=== PATIENT | male | born 1970 | race Caucasian/White ===

== ENCOUNTER → 2017-11-02 15:52 | Outpatient (CLI) | payer OTHER, SELFPAY ==
[2017-11-02 18:18] LABS: CRP < 2.90 mg/L (0.0-3.0)
[2017-11-04 16:11] LABS: Endomysial Antibody IgA Negative (Negative)
[2017-11-07 12:50] LABS: Immunoglobulin A 240 mg/dL (90-386); t-Transglutaminase IgA <2 U/mL (0-3)
== END ==
PROVIDERS: Family Provider Family Medicine; PCP Family Medicine; Visit Provider Internal Medicine Gastroenterology
DX: R19.7 Diarrhea, unspecified (principal)
CPT/HCPCS: 36415; 82784; 83516; 86140; 86255

== ENCOUNTER 2018-06-30 05:36 | Day surgery (SDC) | payer OTHER, SELFPAY ==
[2018-06-08 08:12] VITALS: BMI 24.3
[2018-06-30] VITALS (9 sets, daily range): BP systolic 103–139; BP diastolic 78–96; PULSE 73–81; RESP 16–18; TEMP 36.4–37.2; O2SAT 95–100; BMI 25.6
--- NOTE | 2018-06-30 06:30 | COLBX_PTH ---
PATIENT: ROBERTO CARLOS YIP LOC: EN U#:[id number] AGE/SX: 48/M ROOM: RE06/30/[address]: Dr. Maksim Cortez MD : 1970 BED: DIS: 06/30/2018 SPEC #: [id number] RECD: 06/30/18 08:34 STATUS: JOHANA YEFRI #: [id number] ZAIDA: 06/30/18 06:[address]: Maksim Cortez DEPT: SURGICAL PATHOLOGY RECD BY: Mehul Mcdermott ENTERED: 06/30/18 13:21 SP TYPE: COLON BX OTHR DR: Dr. Chino Cortez III, MD Tissues: Rectum, NOS Procedures: Surgery Specimen Level IV HEADER OPERATION: Colonoscopy (MOD) PRE-OP DIAGNOSIS: Screening TISSUE SUBMITTED: Biopsy rectum MICROSCOPIC DIAGNOSIS Rectum, biopsy: A fragment of colonic mucosa, no pathologic diagnosis. SJ:charlie 07/03/18 MICROSCOPIC DESCRIPTION Slides are reviewed. GROSS DESCRIPTION Received in fixative is one container labeled with the patient's name and designated biopsy rectum. The specimen consists of one irregular fragment of light han soft tissue that measures 0.3 x 0.2 x 0.1 cm. The specimen is totally submitted in one cassette. / SJ:charlie 06/30/18 TC:4 CPT: 76965
--- NOTE | 2018-06-30 06:57 | OP.ENDO_ITS ---
Patient Name: Manav Mckeon Procedure Date: 06/30/2018 6:06 AM Date of : 1970 Age: 48 Procedure: Colonoscopy Indications: Screening for colorectal malignant neoplasm Providers: Maksim Cortez MD Referring MD: Maksim Cortez MD Medicines: Midazolam 4 mg IV, Meperidine 100 mg IV Patient Profile: Last Colonoscopy: none. The patient's first colonoscopy is today. Complications: No immediate complications. Procedure: Pre-Anesthesia Assessment: - Prior to the procedure, a History and Physical was performed, and patient medications and allergies were reviewed. The patient's tolerance of previous anesthesia was also reviewed. The risks and benefits of the procedure and the sedation options and risks were discussed with the patient. All questions were answered, and informed consent was obtained. Prior Anticoagulants: The patient has taken no previous anticoagulant or antiplatelet agents. ASA Grade Assessment: I - A normal, healthy patient. After reviewing the risks and benefits, the patient was deemed in satisfactory condition to undergo the procedure. After I obtained informed consent, the scope was passed under direct vision. Throughout the procedure, the patient's blood pressure, pulse, and oxygen saturations were monitored continuously. The colonoscope was introduced through the anus and advanced to the cecum, identified by appendiceal orifice and ileocecal valve. The colonoscopy was performed without difficulty. The patient tolerated the procedure well. The quality of the bowel preparation was good. The ileocecal valve and the appendiceal orifice were photographed. Moderate Sedation: Moderate (conscious) sedation was personally administered by the endoscopist. The following parameters were monitored: oxygen saturation, heart rate, blood pressure, and response to care. Total physician intraservice time was 15 minutes. Scope In: 6:32:49 AM Scope Withdrawal Time 0 hours 7 minutes 46 seconds Scope Out: 6:47:15 AM Total Procedure Duration Time 0 hours 14 minutes 26 seconds Findings: The perianal and digital rectal examinations were normal. Hemorrhoids were found on perianal exam. Scattered diverticula were found in the sigmoid colon. The exam was otherwise without abnormality. The rectum appeared normal. Biopsies were taken with a cold forceps for histology. Impression: - Hemorrhoids found on perianal exam. Minimal. No bleeding - Diverticulosis in the sigmoid colon. - The examination was otherwise normal. - The rectum is normal. Biopsied. Recommendation: - Discharge patient to home. - Resume previous diet. - Continue present medications. - Repeat colonoscopy in 10 years for screening purposes. - Telephone my office for pathology results in 1 week. Procedure Code(s): --- Professional --- 10840, Colonoscopy, flexible; with biopsy, single or multiple 56152, 59, Moderate sedation services provided by the same physician or other qualified health respiratory care assistant performing the diagnostic or therapeutic service that the sedation supports, requiring the presence of an independent trained observer to assist in the monitoring of the patient's level of consciousness and physiological status; initial 15 minutes of intraservice time, patient age 5 years or older Diagnosis Code(s): --- Professional --- Z12.11, Encounter for screening for malignant neoplasm of colon K64.9, Unspecified hemorrhoids K57.30, Diverticulosis of large intestine without perforation or abscess without bleeding CPT copyright 2017 [employer]. All rights reserved. The codes documented in this report are preliminary and upon medical coder review may be revised to meet current compliance requirements. Maksim Cortez MD 06/30/2018 6:57:09 AM This report has been signed electronically. Number of Addenda: 0 Note Initiated On: 06/30/2018 6:06 AM
== END 2018-06-30 07:46 | disposition home or self-care (01) ==
LOC: EN 05:36 → AC 05:37
PROVIDERS: Family Provider Family Medicine; PCP Family Medicine; Referring Provider Family Medicine; Visit Provider Surgery
PROC: 0DJD8ZZ Inspection of Lower Intestinal Tract, Via Natural or Artificial Opening Endoscopic (ICD-10-PCS; CPT 45378; principal; 2018-06-30 06:25)
DX: Z12.11 Encounter for screening for malignant neoplasm of colon (principal); K57.30 Diverticulosis of large intestine without perforation or abscess without bleeding; K64.9 Unspecified hemorrhoids; Z90.49 Acquired absence of other specified parts of digestive tract
CPT/HCPCS: 45380; 88305; 99152; 99153; J7120

== ENCOUNTER → 2020-02-07 11:06 | Outpatient (CLI) | payer OTHER, SELFPAY ==
[2018-06-30 06:03] VITALS: BMI 25.6
--- NOTE | 2020-02-07 11:12 | VDLE_ITS ---
Reason For Study: pain RIGHT GSV is normal. CFV is compressible, spontaneous, phasic, competent and demonstrates normal augmentation. FV is compressible, spontaneous, phasic, competent and demonstrates normal augmentation. POP V is compressible, spontaneous, phasic, competent and demonstrates normal augmentation. T/P Trunk is compressible. PTV is compressible. RT PerV is compressible. Hypoechoic area behind the knee measuring 2.87 x 1.43 cm. Area is too large to measure in long. Area is nonvascular. Procedure Exam performed in department. The exam was abbreviated due to the COVID 19 protocol. The exam was diagnostic. A preliminary report was called and/or faxed to [facility]. Interpretation Summary Deep veins of the right lower extremity are patent and compressible segmentally. There is no evidence of right lower extremity deep vein thrombosis. Valvular competence appears intact within the proximal deep venous system on the right . The right great saphenous vein appears patent and compressible segmentally. A non-vascular, hypoechoic structure is noted in the right popliteal space, with dimensions as documented above. This probably represents a popliteal cyst. Clinical correlation is advised. Ordering Physician: Lavon Lama Performed By: Shad Nguyen RVT
== END ==
PROVIDERS: PCP Family Medicine; Referring Provider Physician Assistant; Visit Provider Physician Assistant
DX: M79.661 Pain in right lower leg (principal)
CPT/HCPCS: 93971

== ENCOUNTER 2023-07-13 08:57 | Day surgery (SDC) | payer OTHER, SELFPAY ==
[2023-07-13] VITALS (7 sets, daily range): BP systolic 103–130; BP diastolic 70–93; PULSE 72–83; RESP 16; TEMP 36.3–36.7; O2SAT 92–99; BMI 23.8
--- NOTE | 2023-07-13 09:21 | PCM.HP.STD ---
[facility] - General General Date of Admission: 07/13/23 Date of Service: 07/13/23 Chief Complaint: Screening colonoscopy HPI Narrative ROBERTO CARLOS YIP, is a 53 M who presents for a screening colonoscopy. He has a past medical history of partial thyroidectomy with a history of cholecystitis status postcholecystectomy. He comes in today for screening colonoscopy. Last colonoscopy back in 2018. He has a strong family history of colon cancer in his brother was diagnosed at the age of 48. [facility] Medical History (Updated 07/06/23 @ 12:49 by Cecy Ramsey) Family hx of colon cancer Non-smoker Rectal spasm Screening for intestinal cancer Thyroid disease Wears contact lenses Wears glasses Home Medications multivitamin (Daily Multi-Vitamin tablet) 1 tab PO DAILY 07/06/23 [History Last Taken Unknown] Allergy/AdvReac Type Severity Reaction Status Date / Time No Known Allergies Allergy Verified 07/06/23 12:42 Family History (Updated 06/15/23 @ 11:47 by Nata Katz) Mother Hypertension Brother Colon cancer, Onset Age: 48 Survives, colectomy Surgical History History of broken leg Hx of cholecystectomy Hx of colonoscopy Hx of partial thyroidectomy Social History Smoking Status: Never smoker second hand exposure: No alcohol intake: never substance use type: does not use caffeine: Yes what type of physical activity do you participate in: walking, running and weight training frequency: 3-4 times per week seatbelt use: always ROS Review of Systems ROS Unobtainable: other Constitutional Constitutional: Denies fatigue, fever(s), poor appetite, weight gain or weight loss ENT HEENT: Denies mouth lesions Cardiovascular Cardiovascular: Denies abdominal bloating, abdominal edema or abdominal pain Respiratory/Chest Respiratory/Chest: Denies change in mental status, change in phlegm color, chest congestion or chest tightness Gastrointestinal Gastrointestinal: Denies belching, bloating, change in bowel habits, change in stool character, chewing difficulty, coffee ground emesis, constipation, cramping, diarrhea, dyspepsia, dysphagia, early satiety, excessive flatus, fecal incontinence, heartburn, hematemesis, hematochezia, hemorrhoids, loose stools, melena, nausea, odynophagia, rectal bleeding, tenesmus, vomiting or weight changes Genitourinary Genitourinary: Denies abdominal discomfort, burning urination or itching Musculoskeletal Musculoskeletal: Reports as per HPI; Denies muscle weakness or myalgias Integumentary Integumentary: Denies jaundice Neurologic Neurologic: Denies lack of coordination or weakness Psychiatric Psychiatric: Denies confusion, depression, memory loss, mood swings, paranoia or suicidal ideation Endocrine Endocrinology: Denies systems reviewed and no addt'l complaints, except as documented Hematologic/Lymphatic Hematologic/Lymphatic: Denies anemia, easy bleeding, easy bruising or lymphadenopathy Allergic/Immunologic Allergic/Immunologic: Denies systems reviewed and no addt'l complaints, except as documented Physical Exam Const alert General Appearance: cooperative Orientation / Consciousness: oriented to person HEENT hearing grossly normal bilaterally Head and Scalp: normal to inspection Face and Sinus: face symmetric Nose: external nose normal Mouth: oral and palatal mucosa normal Eyes conjunctivae normal General Eye: normal appearance of both eyes Neck full ROM General: normal visual inspection Lymph Lymphatic: no lymphadenopathy noted Chest inspection of chest normal and palpation of chest normal Chest: symmetrical chest wall rise Resp normal respiratory effort Effort and Inspection: able to speak in complete sentences Cardio regular rate GI non-distended Percussion: normal to percussion Rectal Exam: deferred Neuro Speech: speech normal Gait (Neuro): normal gait Assessment & Plan Assessment/Plan (1) Encounter for screening for malignant neoplasm of colon: PLAN: He was explained alternatives, risk, benefits including not withstanding bleeding, infection, sepsis, perforation, need for emergent surgery and . He will have an ASA of 2.
[2023-07-13] MEDS: Lactated Ringers 1,000 ML 15 ML IV (09:42)
--- NOTE | 2023-07-13 10:00 | COLBX_PTH ---
PATHOLOGY RESULTS PATIENT: ROBERTO CARLOS YIP LOC: EN U#:[id number] AGE/SX: 53/M ROOM: RE07/13/[address]: Dr. Uri Rodríguez DO : 1970 BED: DIS: 07/13/2023 SPEC #: [id number] RECD: 07/13/23 12:20 STATUS: JOHANA YEFRI #: [id number] ZAIDA: 07/13/23 10:[address]: Uri Rodríguez DEPT: SURGICAL PATHOLOGY RECD BY: Meg Layne ENTERED: 07/13/23 12:21 SP TYPE: COLON BX OTHR DR: Dr. Leonel Heaton MD Tissues: COLON BIOPSY Anal region Procedures: Surgery Specimen Level IV HEADER OPERATION: Colonoscopy - open access with biopsies PRE-OP DIAGNOSIS: Screening TISSUE SUBMITTED: A - Hepatic flexure polyp biopsy, B - Anorectal juncture biopsy MICROSCOPIC DIAGNOSIS A. Hepatic flexure polyp, biopsy: Tubular adenoma. B. Anorectal junction, biopsy: No significant pathologic change. AM:charlie 07/14/2023 MICROSCOPIC DESCRIPTION Slides are reviewed. GROSS DESCRIPTION A - Received in fixative is one container labeled with the patient's name and designated hepatic flexure polyp biopsy. The specimen consists of one irregular fragment of light han soft tissue that measures 0.3 x 0.3 x 0.1 cm. The specimen is totally submitted in one cassette. B - Received in fixative is one container labeled with the patient's name and designated anorectal juncture biopsy. The specimen consists of two irregular fragments of light han soft tissue that in aggregate measure 0.6 x 0.3 x 0.1 cm. The specimen is totally submitted in one cassette. / SJ:charlie 07/13/2023 TC:5 CPT: 96217 x2
--- OUTSIDE RECORDS SUMMARY | 2023-07-13 10:01 | XMS RPT_ITS | CCD ---
Author Name Unknown Address [address] [place] [address] Organization [facility] Care Team Providers Care [employer] Pumper Name Role Phone James White MD Primary Care Provider [phone] JAMES WHITE Attending Unavailable JAMES WHITE Primary Care Unavailable JAMES WHITE Referring Unavailable JAMES WHITE Primary Care Unavailable JAMES WHITE Primary Care Unavailable JAMES WHITE Referring Unavailable JAMES WHITE Attending Unavailable JAMES WHITE Primary Care Unavailable JAMES WHITE Primary Care Unavailable JAMES WHITE Referring Unavailable James White MD Primary Care Provider [phone] Medications Completed/Discontinued Medications Medication Drug Class(es) Dates Sig (Normalized) Sig (Original) meloxicam 15 mg oral tablet (6 sources) Nonsteroidal Anti-inflammatory Drug take 1 tablet by mouth once daily as needed meloxicam (MOBIC) 15 mg tablet Take 15 mg by mouth once daily. As needed 0 Active Problems Active Problems Problem Classification Problem Date Documented Da te Episodic/Chronic Complications of surgical procedures or medical care (7 sources) History of subtotal thyroidectomy; Translations: [Postprocedural hypothyroidism] Onset: 04-14-2017 Chronic Osteoarthritis (6 sources) Arthritis of right knee; Translations: [Unilateral primary osteoarthritis, right knee] Onset: 04-24-2021 04-24-2021 Chronic Other aftercare (20 sources) Patient encounter status; Translations: [Other intermission coordinator (current) drug therapy] Onset: 05-18-2022 05-18-2022 Episodic Other non-traumatic joint disorders (1 source) Pain in left knee; Translations: [Acute pain of left knee] Onset: 05-10-2023 Episodic Other nutritional; endocrine; and metabolic disorders (4 sources) Gilbert's syndrome; Translations: [Gilbert syndrome] Onset: 05-10-2023 05-10-2023 Chronic Other screening for suspected conditions (not mental disorders or infectious disease) (4 sources) Encounter for screening for diabetes mellitus; Translations: [Encounter for screening for lipoid disorders] Onset: 05-18-2022 Episodic Residual codes; unclassified (4 sources) At risk of disease; Translations: [Other specified personal risk factors, not elsewhere classified] Onset: 05-10-2023 Episodic Residual codes; unclassified (3 sources) Active living will ; Translations: [Other specified health status] Onset: 05-10-2023 05-10-2023 Episodic Residual codes; unclassified (2 sources) Family history of cancer of colon; Translations: [Family history of malignant neoplasm of digestive organs] Onset: 05-16-2023 05-16-2023 Episodic Thyroid disorders (7 sources) Nodular goiter ; Translations: [Nontoxic goiter, unspecified] Onset: 01-15-2015 Chronic Thyroid disorders (1 source) Disorder of thyroid gland; Translations: [Disorder of thyroid, unspecified] Episodic Past or Other Problems Problem Classification Problem Date Documented Da te Episodic/Chronic Anal and rectal conditions (4 sources) Anal sphincter spasm; Translations: [Anal spasm] Onset: 05-18-2022 05-18-2022 Episodic Other aftercare (1 source) Other intermission coordinator (current) drug therapy; Translations: [Medication management] Onset: 05-18-2022 Episodic Other infections; including parasitic (7 sources) Personal history of other infectious and parasitic diseases; Translations: [History of COVID-19] Onset: 04-24-2021 Episodic Other liver diseases (6 sources) Increased bilirubin level; Translations: [Unspecified jaundice] Onset: 02-03-2019 02-03-2019 Episodic Other liver diseases (1 source) Unspecified jaundice; Translations: [Elevated bilirubin] Onset: 02-03-2019 Episodic Results Test Name Value Interpretation Reference Range Facil ity Vital Signs Date Time Vital Sign Value Performing Clinician Ofelia ibarra 03-04-2022 08:24-0400 Body height 183 cm John Hernandez MD Work Phone: [facility] 03-04-2022 08:24-0400 Body weight 84.87 kg John Hernandez MD Work Phone: [facility] 03-04-2022 08:24-0400 Diastolic blood pressure 81 mm[Hg] John Hernandez MD Work Phone: [facility] 03-04-2022 08:24-0400 Heart rate 65 /min John Hernandez MD Work Phone: [facility] 03-04-2022 08:24-0400 Systolic blood pressure 121 mm[Hg] John Hernandez MD Work Phone: [facility] Encounters Encounter Date Encounter Type Care Provider Facility Start: 05-16-2023 Telephone encounter Susy Talley MA Family [facility] Procedures Date Procedure Procedure Detail Performing Clinician Start: 05-10-2023 Lipid 1996 panel - S ashlee or Plasma James White MD Work Phone: Start: 05-11-2022 Hemoglobin A1c/Hemoglobin.total in Blood [facility] Provider Start: 03-04-2022 End: 03-04-2022 soft tissue head & neck real time imge docm John Hernandez MD Work Phone: Start: 06-30-2018 Colonoscopy John edward MD Work Phone: Plan of Treatment Date Care Activity Detail Author Start: 06-30-2028 Colonoscopy COLONOSCOPY [facility] Start: 06-30-2028 COLORECTAL CANCER SCREENING COLORECTAL CANCER SCREENING [facility] Start: 05-10-2028 Lipid 1996 panel - S ashlee or Plasma Lipid Screening [facility] Start: 05-18-2027 LIPID SCREEN LIPID SCREEN [facility] Start: 05-10-2026 Diabetes Screening Diabetes Screenin g [facility] Start: 04-24-2026 LIPID SCREEN LIPID SCREEN [facility] Start: 05-18-2025 DIABETES SCREEN DIABETES SCREEN [facility] Start: 04-24-2024 DIABETES SCREEN DIABETES SCREEN [facility] Start: 03-05-2024 Urine microalbumin profile [facility] Start: 07-10-2023 Depression Assessment Depression Ass essment [facility] Immunizations Immunization Date Immunization Notes Care Provider Merlin peterson 03-05-2014 tetanus toxoid, redu temitope diphtheria toxoid, and acellular pertussis vaccine, adsorbed John Hernandez MD Work Phone: [facility] Payers Date Payer Category Payer Private Health Insurance DAVID YOU [id number] 2021-Present [phone] [address] [place] [address] PPO [id number] 2021 Private Health Insurance [id number] Social History Date Type Detail Facility Start: 03-04-2022 Tobacco smoking stat us DCIS Never smoked tobacco [facility] Work Phone: Start: 03-04-2022 Tobacco use and exposure Smoke less tobacco non-user [facility] Work Phone: Start: 03-04-2022 End: 05-16-2023 Alcohol intake Current non-drinker of alcohol (finding) [facility] Start: 05-09-2020 History SDOH Alcohol Frequency 1 [facility] Start: 1970 Sex Assigned At Not on file [facility] Start: 02-22-2022 End: 03-04-2022 Exposure to SARS-CoV-2 (event) Not sure [facility] Start: 05-18-2022 End: 05-09-2023 History of Social function [facility] Start: 05-18-2022 End: 05-09-2023 [facility] Utilities [facility] Has the [employer] threatened to shut off services in your home in past 12Mo No [facility] Do you belong to any clubs or organizations such as scientologist groups, unions, fraternal or athletic groups, or school groups? Yes [facility] Are you now , , , , never or living with a partner? [facility] How often to you hav e a drink containing alcohol? Never [facility] How many standard dr inks containing alcohol do you have on a typical day? Patient does not drink [facility] Do you feel stress - tense, restless, nervous, or anxious, or unable to sleep at night because your mind is troubled all the time - these days [OSQ] Only a little [facility] (I/We) worried wheth er (my/our) food would run out before (I/we) got money to buy more. Never true [facility] Clinical Notes 04-14-2017 to 05-16-2023 Telephone Encounter - Susy Talley MA - 05/16/2023 4:24 PM ESTTelephone Encounter - James White MD - 05/16/2023 12:35 PM ESTTelephone Encounter - Susy Talley MA - 05/16/2023 11:52 AM EST Note Date & Type Note Facility 05-16-2023 Miscellaneous Notes Faxed. Susy Talley MA Order ready to be faxed. Received fax from Dr. Cortez's office and patient is due for colonoscopy in July 02. Please place consult. Patient notified. Susy Talley MA documented in this encounter [facility] 05-13-2023 Miscellaneous Notes Patient calls and notified of results and providers instructions. Patient verbalizes understanding. OV notes form 05/10/2023 mentions ok to proceed with PT if x-ray ok. Patient not wanting to pursue at this time. Patient will notify provider if changes mind. Carline Mojica RN Please let patient know their xray is normal. documented in this encounter [facility] 05-11-2023 Miscellaneous Notes Patient notified and voiced understanding. Susy Talley MA Let patient know he does has gilberts syndrome which is the benign liver disease we discussed. His prostate lab, lipid panel, blood sugar screen and electrolyte panel were all ok. documented in this encounter [facility] 05-10-2023 Note HNO ID: [id number] Author: Erica Vines RT(R) Service: Radiology Author Type: Technologist Type: Progress Notes Filed: 05/10/2023 9:15 AM Note Text: Radiology Service Progress Note PATIENT NAME: Manav Mckeon DATE OF SERVICE: May 10, 2023 TIME: 9:00 AM PATIENT IDENTITY VERIFICATION COMPLETED USING TWO (2) IDENTIFIERS: Name and Date of confirmed by patient verbally. FALL SCREENING: Has the patient had 2 falls in the last year or 1 fall with injury or currently using an Ambulatory Assistive Device (Walker, Cane, Wheelchair, Crutches, etc.)? No PATIENT GENDER DATA: Male PATIENT RELEVANT IMPLANT DATA REVIEWED: Not Applicable RADIOLOGY DEPARTMENT: General X-ray: Exam(s) Completed: Lower Extremity X-Ray(s): Knee, AP / Lat / Tunne / Merchant Bilateral and Wt. Bearing PERIPHERAL IV DATA: Not applicable SIGNED BY: RT Ricardo(R) May 10, 2023 9:00 AM [facility] 05-10-2023 Note HNO ID: [id number] Author: James White MD Service: ? Author Type: Physician Type: Progress Notes Filed: 05/10/2023 9:29 PM Note Text: Chief Complaint Patient presents with: Physical HPI Manav Mckeon is a 52 year old male who presents here today for Physical. Patient with hx of thyroid goiter s/p partial removal and follows with Endo. Has Arthritis of the right knee and sees ortho as well as those reviewed and addressed below and in ROS. Any concerns today? None Patients see Endocrinology - last visit 02/2022. Patient has an appointment in May His brother who is 48 was just diagnoses with colon cancer. Past medical history, appointments, medications, allergies reviewed. Previous Medical History PAST MEDICAL HISTORY Diagnosis Date Arthritis of right knee 04/24/2021 Seeing Sheri Gallagher Cholelithiasis 10/2008 Elevated bilirubin Goiter, nodular 01/15/2015 H/O partial thyroidectomy 04/14/2017 History of COVID-19 04/24/202102/2021 Left thyroid nodule 05/09/2015 benign Rectal spasm 04/14/2017 Rectal sphincter spasm 05/18/2022 Skin cancer screening 05/18/[address] Stevenson Well adult exam 04/24/2021 Last done: 04/24/2021 Previous Surgical History PAST SURGICAL HISTORY Procedure Laterality Date BIOPSY LIVER NEEDLE PERCUTANEOUS 02/04/2009 COLONOSCOPY 06/30/2018 FNA WITH IMAGING Left 02/01/2015 U/S FNA left thyroid nodule LAPS SURG CHOLECYSTECTOMY W/CHOLANGIOGRAPHY 02/04/2009 PAST SURGICAL HISTORY OF hardware in rt ankle TOTAL THYROID LOBECTOMY UNI W/WO ISTHMUSECTOMY Left 05/09/2015 no cancer Family History FAMILY HISTORY Problem Relation Age of Onset Hypertension Mother Hyperlipidemia Father other (Protatitis) Father Hypertension Brother Diabetes Maternal Grandmother Alzheimer's Disease Maternal Uncle Colon Cancer No Family History Prostate Cancer No Family History Breast Cancer No Family History Ovarian cancer No Family History Coronary Artery Disease No Family History Kidney Disease No Family History Seizures No Family History Stroke No Family History Thyroid No Family History Patient Allergies ALLERGIES No Known Allergies Current Medications Current Outpatient Medications on File Prior to Visit Medication Sig meloxicam (MOBIC) 15 mg tablet Take 15 mg by mouth once daily. As needed vitamin B complex (B-COMPLEX ORAL) Take by mouth once daily. [facility]NC, biotin 50 mcg per pill OTC NUTRITIONAL SUPPLEMENT once daily. [facility]PC EXtra No current facility-administered medications on file prior to visit. Social History Social History Tobacco Use Smoking status: Never Smokeless tobacco: Never Vaping Use Vaping Use: Never used Substance Use Topics Alcohol use: No Drug use: No Review of Symptoms REVIEW OF SYSTEMS GENERAL: No weight loss, malaise or fevers HEENT: Negative for frequent or significant headaches, No changes in hearing or vision, no nose bleeds or other nasal problems NECK: Negative for lumps, goiter, pain and significant neck swelling RESPIRATORY: Negative for cough, hemoptysis, wheezing, COPD, dyspnea or shortness of breath CARDIOVASCULAR: Negative for chest pain, leg swelling, hypertension, CHF or palpitations GI: No nausea, vomiting, or diarrhea, No heartburn or reflux symptoms, and no blood : No history of dysuria, frequency or blood. MUSCULOSKELETAL: typically has a Hx with right knee pain but recently with flexion of the left knee he is getting pain in the medial compartment for the past several months. No grinding, locking or giving out. SKIN: Negative for lesions, rash, and itching PSYCH: Negative for sleep disturbance, mood disorder and recent psychosocial stressors HEMATOLOGY/LYMPHOLOGY: Negative for prolonged bleeding, bruising easily or swollen nodes ENDOCRINE: Negative for cold or heat intolerance, polyuria, polydipsia and goiter NEURO: No history of headaches, syncope, paralysis, seizures or tremors EXAM: BP 118/82 (BP Site: Left Arm, BP Position: Sitting, BP Cuff Size: Regular Adult) Pulse 78 Resp 16 Ht 184.8 cm (6' 0.75 ) Wt 81.2 kg (179 lb) BMI 23.78 kg/m? General Appearance: Well appearing, alert, in no acute distress, well-hydrated, well nourished.. Skin: Skin color, texture, turgor normal, no suspicious rashes or lesions. Head: Normocephalic, no masses, lesions, tenderness or abnormalities. Eyes: Anicteric sclera. Pupils are equally round and reactive to light. Extraocular movements are intact. . Ears: External ears, TM's normal, canals clear. Nose/Sinuses: Nares normal, septum midline, mucosa normal, no drainage or sinus tenderness. Oropharynx: Lips, mucosa, and tongue normal, teeth and gums normal, oropharynx normal. Neck: Supple, no adenopathy; thyroid symmetric, normal size, no bruits. Lungs: Lungs clear to auscultation. No wheezing, rhonchi, rales.. Heart: RRR without murmur, gallop, or rubs. No ectopy. Abdomen: N (more content not included)... [facility] 05-21-2022 Miscellaneous Notes Patient notified and voiced understanding. Faxed work health form. Susy Talley MA Patient also indicated that they completed an A1C at work and results were 5.0. Updated chart. Susy Talley MA ' Let patient know his prostate lab, lipid panel, kidney functions, liver functions, blood sugar and electrolytes were all ok. Work health form ready to be faxed. documented in this encounter [facility] 05-18-2022 Note HNO ID: [id number] Author: James White MD Service: ? Author Type: Physician Type: Progress Notes Filed: 05/18/2022 10:31 AM Note Text: Chief Complaint Patient presents with: Physical HPI Manav Mckeon is a 51 year old male who presents here today for Above Complaints. and Chronic Medical Conditions.. Patient with hx of thyroid goiter s/p partial removal and follows with Endo. Has Arthritis of the right knee and sees ortho as well as those reviewed and addressed below and in ROS. Patient has been doing ok. No new issues or concerns. Using the Mobic a few days a month for knee pain. Past medical history, appointments, medications, allergies reviewed. Previous Medical History PAST MEDICAL HISTORY Diagnosis Date Arthritis of right knee 04/24/2021 Seeing Sheri Gallagher Cholelithiasis 10/2008 Elevated bilirubin Goiter, nodular 01/15/2015 H/O partial thyroidectomy 04/14/2017 History of COVID-19 04/24/202102/2021 Left thyroid nodule 05/09/2015 benign Rectal spasm 04/14/2017 Well adult exam 04/24/2021 Last done: 04/24/2021 Previous Surgical History PAST SURGICAL HISTORY Procedure Laterality Date BIOPSY LIVER NEEDLE PERCUTANEOUS 02/04/2009 COLONOSCOPY 06/30/2018 FNA WITH IMAGING Left 02/01/2015 U/S FNA left thyroid nodule LAPS SURG CHOLECYSTECTOMY W/CHOLANGIOGRAPHY 02/04/2009 PAST SURGICAL HISTORY OF hardware in rt ankle TOTAL THYROID LOBECTOMY UNI W/WO ISTHMUSECTOMY Left 05/09/2015 no cancer Family History FAMILY HISTORY Problem Relation Age of Onset Hypertension Mother Hyperlipidemia Father other (Protatitis) Father Hypertension Brother Diabetes Maternal Grandmother Alzheimer's Disease Maternal Uncle Colon Cancer No Family History Prostate Cancer No Family History Breast Cancer No Family History Ovarian cancer No Family History Coronary Artery Disease No Family History Kidney Disease No Family History Seizures No Family History Stroke No Family History Thyroid No Family History Patient Allergies ALLERGIES No Known Allergies Current Medications Current Outpatient Medications on File Prior to Visit Medication Sig meloxicam (MOBIC) 15 mg tablet Take 15 mg by mouth once daily. As needed vitamin B complex (B-COMPLEX ORAL) Take by mouth once daily. [facility], biotin 50 mcg per pill OTC NUTRITIONAL SUPPLEMENT once daily. [facility]PC EXtra No current facility-administered medications on file prior to visit. Social History Social History Tobacco Use Smoking status: Never Smokeless tobacco: Never Vaping Use Vaping Use: Never used Substance Use Topics Alcohol use: No Drug use: No Review of Symptoms REVIEW OF SYSTEMS GENERAL: No weight loss, malaise or fevers HEENT: Negative for frequent or significant headaches, No changes in hearing or vision, no nose bleeds or other nasal problems NECK: Negative for lumps, goiter, pain and significant neck swelling RESPIRATORY: Negative for cough, hemoptysis, wheezing, COPD, dyspnea or shortness of breath CARDIOVASCULAR: Negative for chest pain, leg swelling, hypertension, CHF or palpitations GI: No nausea, vomiting, or diarrhea, No heartburn or reflux symptoms, and no blood : No history of dysuria, blood MUSCULOSKELETAL: Negative for new or chnges in his typical joint pain or swelling, back pain or muscle pain SKIN: Negative for lesions, rash, and itching PSYCH: Negative for sleep disturbance, mood disorder and recent psychosocial stressors HEMATOLOGY/LYMPHOLOGY: Negative for prolonged bleeding, bruising easily or swollen nodes ENDOCRINE: Negative for cold or heat intolerance, polyuria, polydipsia and goiter NEURO: No history of headaches, syncope, paralysis, seizures or tremors EXAM: BP 122/82 Pulse 80 Resp 16 Ht 187 cm (6' 1.62 ) Wt 84.8 kg (187 lb) SpO2 99% BMI 24.26 kg/m? Last 4 Encounter Wt Readings: Date: Wt: 05/18/2022 84.8 kg (187 lb) 03/04/2022 84.9 kg (187 lb 1.6 oz) 04/24/2021 81.6 kg (180 lb) 03/04/2021 82.9 kg (182 lb 11.2 oz) General Appearance: Well appearing, alert, in no acute distress, well-hydrated, well nourished.. Skin: seeing derm Head: Normocephalic, no masses, lesions, tenderness or abnormalities. Eyes: Anicteric sclera. Pupils are equally round and reactive to light. Extraocular movements are intact. . Ears: External ears normal, canals clear. Neck: Supple, no adenopathy; thyroid symmetric, normal size, no bruits. Lungs: Lungs clear to auscultation. No wheezing, rhonchi, rales.. Heart: RRR without murmur, gallop, or rubs. No ectopy. Abdomen: Normal abdominal exam, Abdomen soft, non-tender. Bowel sounds normal. No masses, organomegaly. Extremities: No deformities, edema, skin discoloration,. Good capillary refill. . Peripheral Pulses: Normal. Neurologic: Gait normal. Reflexes normal and symmetric. Sensation to light touch and crainal nerves 2-12 intact.. Genitalia: Normal, Penis normal. No urethr (more content not included)... [facility] 03-04-2022 Note HNO ID: [id number] Author: John Hernandez MD Service: ? Author Type: Physician Type: Progress Notes Filed: 03/04/2022 5:12 PM Note Text: . [facility] - [place] [address] [place], [place] [id number] [place] [address] Endocrinology - [address], [address] [place], [place] [address] Patient's name: Manav Mckeon Patient's date of : 1970 Date of encounter: 03/04/2022 History of present illness: Manav Mckeon is a 51 year old male who presents for follow up of an endocrinology issue. Previous history: 01/14/2015: TSH 1.230 (0.400-5.500 uU/mL), total T4 5.4 (5.0-11.0 ug/dL), total T3 94 (94-170 ng/dL), 01/15/2015: Ultrasound of thyroid gland, at outside hospital: Left lobe dominant predominately solid echogenic nodule, 30 x 21 x 21 mm with a smooth circumscribed margin. There is a small cystic area in the posterior aspect of this nodule. No other definitive thyroid nodule is seen. However, there is a 5 x 5 x 4 mm hypoechoic solid nodule that appears to be adjacent to the posterior inferior aspect of the right lobe representing either an exophytic thyroid nodule or a parathyroid gland. 02/01/2015: ultrasound guided fine needle aspiration biopsy, of left thyroid lesion, at [facility]. Cytology: follicular lesion of undetermined significance. 02/2015: Initial consultation with [facility]. 02/2015: Ultrasound: Gland homogeonus. Right lobe without lesions. Isthmus without lesions. Left mass 29.6 x 22.6 x 22.1 mm (length, width, depth) Iso-echoic solid-appearing lesion with hypoechoic rim, ok borders, no calcifications, no abnormal intra-nodular vascular patterns. Some peripheral vascularity. No suspicious nodes in neck (right and left) levels VII, , IV, III, IIa, IIb. 02/2015: I then did an ultrasound guided fine needle aspiration biopsy of the left lesion.Cytology ([facility]): Indeterminate by cytopathology. 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 Microscopic description: The cytologic preparations are moderately cellular, and show an increased number of follicular cells in the crowded micofollicular groups. Some of the follicular cells are enlarged and show nuclei with pale chromatin. Some colloid and occasional macrofollicles are also seen. Diagnostic comments: These features are best described as atypia of undetermined significance (AUS). The nuclear atypia combined with the increased number of microfollicles and crowded groups of follicular cells support the diagnosis of AUS. The previous diagnosis is noted. 03/2015: Molecular testing; ([facility]ir[facility]); [facility]irma GEC Result: Suspicious. [facility]irma MTC Result: Negative. [facility] BRAF Result: Negative (A gene expression signature for the BRAF V600E mutation was not identified. A negative Afirma BRAF result does not significantly change the risk of malignancy (ROM) of the Afirma GEC Suspicious result.) 04/01/2015: Initial consultation with surgeon, Dr. Reg Silver. 05/09/2015: Surgery: Left thyroid lobectomy. [facility]. Dr. Reg Silver. The findings revealed a 3-cm left-sided thyroid mass, which on frozen section did not show any malignancy. The right side was not dissected out. 05/09/2015: Surgical pathology: Left thyroid lobectomy. 2.5 cm benign adenomatoid nodule. 08/2015: TSH 3.450 (0.358-3.740 uIU/mL), free T4 0.83 (0.76-1.46 ng/dL), free T3 2.7 (2.2-4.0 pg/ml), asymptomatic. Plan was to monitor his thyroid hormone levels over time. 04/2016: TSH 3.090 (0.400 - 5.500 uU/mL), at outside lab. 08/2016: TSH 2.290 (0.358-3.740 uIU/mL), free T4 0.88 (0.76-1.46 ng/dL), free T3 2.5 (2.2-4.0 pg/mL), Thyroid Peroxidase Antibodies <28.0 (0.0-60.0 IU/mL), Thyroglobulin Antibodies <15.0 (0.0-60.0 IU/mL), 08/2016: Neck Ultrasound (intra-office): Thyroid: Right thyroid lobe intact, 50.1 x 19.0 x 18.9 mm (length x width x depth), Isthmus 2.9 mm (depth). Left lobe surgically absent. Thyroid architecture homogenous. No nodules or cysts. No suspicious nodes in neck levels (bilateral) , VII, IV, III, IIa, IIb. 09/2016: Thyroglobulin 9.2 (<0.1 ng/mL), Thyroglobulin Antibodies <1 (<=1 IU/mL), Note: The thyroglobulin was evaluated by the Mer [place] Chemiluminescent method, [facility]. Note, I didn't order this test. Lab ran wrong test. 06/2017: TSH 2.930 (0.358-3.740 uIU/mL), free T4 0.84 (0.76-1.46 ng/dL), free T3 2.8 (2.2-4.0 pg/mL), on no thyroid meds. 06/2017: Neck Ultrasound (intra-office): Right thyroid lobe intact, 53.0 x 18.6 x 18.0 mm (length, width, depth) smooth and homogenous. Isthmus and left lobe surgically absent. No suspicious nodes in neck levels (bilateral) , VII, IV, III, IIa, IIb. 05/2018: TSH 2.850 (0.358-3.740 uIU/mL), free T4 0.81 (0.76-1.46 ng/dL), on no thyroid meds. 05/2018: Neck Ultrasound ( (more content not included)... [facility] 03-04-2022 Instructions John Hernandez MD - 03/04/2022 8:26 AM EDT Goiter and nodular goiter: We will do long-term monitoring of your enlarged thyroid gland (goiter). Contact me if any new and persistent anterior neck issues, like: Choking sensation / feeling of pressure on the front of the neck. Trouble swallowing / feeling like food getting 'caught' on the way down. New hoarseness of the voice, that is not going away after a few weeks. Chronic need to clear throat , or coughing all day long. documented in this encounter [facility] 03-04-2022 History of Presen t illness Narrative Images from the original note were not included. . [facility] [address] [place] [address], [address] Endocrinology - [address], [address] [place] [address] Patient's name: Manav Mckeon Patient's date of : 1970 Date of encounter: 03/04/2022 History of present illness: Manav Mckeon is a 51 year old male who presents for follow up of an endocrinology issue. Previous history: 01/14/2015: TSH 1.230 (0.400-5.500 uU/mL), total T4 5.4 (5.0-11.0 ug/dL), total T3 94 (94-170 ng/dL), 01/15/2015: Ultrasound of thyroid gland, at outside hospital: Left lobe dominant predominately solid echogenic nodule, 30 x 21 x 21 mm with a smooth circumscribed margin. There is a small cystic area in the posterior aspect of this nodule. No other definitive thyroid nodule is seen. However, there is a 5 x 5 x 4 mm hypoechoic solid nodule that appears to be adjacent to the posterior inferior aspect of the right lobe representing either an exophytic thyroid nodule or a parathyroid gland. 02/01/2015: ultrasound guided fine needle aspiration biopsy, of left thyroid lesion, at [facility] facility. Cytology: follicular lesion of undetermined significance. 02/2015: Initial consultation with nh. 02/2015: Ultrasound: Gland homogeonus. Right lobe without lesions. Isthmus without lesions. Left mass 29.6 x 22.6 x 22.1 mm (length, width, depth) Iso-echoic solid-appearing lesion with hypoechoic rim, ok borders, no calcifications, no abnormal intra-nodular vascular patterns. Some peripheral vascularity. No suspicious nodes in neck (right and left) levels VII, , IV, III, IIa, IIb. 02/2015: I then did an ultrasound guided fine needle aspiration biopsy of the left lesion.Cytology ([facility]): Indeterminate by cytopathology. 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 Microscopic description: The cytologic preparations are moderately cellular, and show an increased number of follicular cells in the crowded micofollicular groups. Some of the follicular cells are enlarged and show nuclei with pale chromatin. Some colloid and occasional macrofollicles are also seen. Diagnostic comments: These features are best described as atypia of undetermined significance (AUS). The nuclear atypia combined with the increased number of microfollicles and crowded groups of follicular cells support the diagnosis of AUS. The previous diagnosis is noted. 03/2015: Molecular testing; ([facility] Afirma); Afirma GEC Result: Suspicious. Afirma MTC Result: Negative. Afirma BRAF Result: Negative (A gene expression signature for the BRAF [id number] mutation was not identified. A negative Afirma BRAF result does not significantly change the risk of malignancy (ROM) of the Afirma GEC Suspicious result.) 04/01/2015: Initial consultation with surgeon, Dr. Reg Silevr. 05/09/2015: Surgery: Left thyroid lobectomy. [facility]. Dr. Reg Silver. The findings revealed a 3-cm left-sided thyroid mass, which on frozen section did not show any malignancy. The right side was not dissected out. 05/09/2015: Surgical pathology: Left thyroid lobectomy. 2.5 cm benign adenomatoid nodule. 08/2015: TSH 3.450 (0.358-3.740 uIU/mL), free T4 0.83 (0.76-1.46 ng/dL), free T3 2.7 (2.2-4.0 pg/ml), asymptomatic. Plan was to monitor his thyroid hormone levels over time. 04/2016: TSH 3.090 (0.400 - 5.500 uU/mL), at outside lab. 08/2016: TSH 2.290 (0.358-3.740 uIU/mL), free T4 0.88 (0.76-1.46 ng/dL), free T3 2.5 (2.2-4.0 pg/mL), Thyroid Peroxidase Antibodies <28.0 (0.0-60.0 IU/mL), Thyroglobulin Antibodies <15.0 (0.0-60.0 IU/mL), 08/2016: Neck Ultrasound (intra-office): Thyroid: Right thyroid lobe intact, 50.1 x 19.0 x 18.9 mm (length x width x depth), Isthmus 2.9 mm (depth). Left lobe surgically absent. Thyroid architecture homogenous. No nodules or cysts. No suspicious nodes in neck levels (bilateral) , VII, IV, III, IIa, IIb. 09/2016: Thyroglobulin 9.2 (<0.1 ng/mL), Thyroglobulin Antibodies <1 (<=1 IU/mL), Note: The thyroglobulin was evaluated by the Mer [place] Chemiluminescent method, [facility]. Note, I didn't order this test. Lab ran wrong test. 06/2017: TSH 2.930 (0.358-3.740 uIU/mL), free T4 0.84 (0.76-1.46 ng/dL), free T3 2.8 (2.2-4.0 pg/mL), on no thyroid meds. 06/2017: Neck Ultrasound (intra-office): Right thyroid lobe intact, 53.0 x 18.6 x 18.0 mm (length, width, depth) smooth and homogenous. Isthmus and left lobe surgically absent. No suspicious nodes in neck levels (bilateral) , VII, IV, III, IIa, IIb. 05/2018: TSH 2.850 (0.358-3.740 uIU/mL), free T4 0.81 (0.76-1.46 ng/dL), on no thyroid meds. 05/2018: Neck Ultrasound (intra-office): The (remaining) thyroid gland architecture is smooth and homogenous. Right lobe 53.6 x 19.7 x 16.4 mm (length x width x depth), Left lobe surgically absent. Isthmus (right portion) 3.3 mm depth. No suspicious nodes in neck levels (bilateral) , VII, IV, III, IIa, IIb. 01/2019: TSH 3.050 (0.400 - 5.500 uU/mL), free T4 1.2 (0.9 - 1.7 ng/dL). 05/2019: Neck Ultrasound (intra-office): The thyroid gland architecture is smooth and mostly homogenous. Right lobe 52.9 x 18.8 x 18.6 mm (length x width x depth), Left lobe and Isthmus surgically absent. No suspicious nodes in neck levels (bilateral) , VII, IV, III, IIa, IIb. 04/2020: TSH 2.510 (0.270-4.200 uIU/mL), free T4 1.1 (0.9-1.7 ng/dL), free T3 3.0 (2.3-4.1 pg/mL), 04/2020: Neck Ultrasound (performed during the endocrine clinic visit): The thyroid gland architecture is smooth and mostly homogenous. Right lobe intact 51.4 x 19.2 x 12.5 mm (length x width x depth), Left lobe and Isthmus surgically absent. No nodules or cysts in right lobe. No tissue in left thyroid bed. No suspicious nodes in neck levels (bilateral) , VII, IV, III, IIa, IIb. 02/2021: TSH 0.660 (0.270-4.200 uU/mL), free T4 1.1 (0.9-1.7 ng/dL), on no thyroid meds. 02/2021: Neck Ultrasound (performed during the endocrine clinic visit): The thyroid gland architecture is mildly heterogeneous. Right lobe 49.2 x 19.5 x 14.0 mm (length x width x depth), Left lobe and Isthmus surgically absent. No nodules or cysts in Right lobe. No tissue in left thyroid bed. No prominent nodes. No suspicious nodes in neck levels (bilateral) , VII, IV, III, IIa, IIb. Interval history: The patient now returns for re-evaluation and follow-up. The above history was re-confirmed. When asked how he feels overall, he responded fine Not on thyroid meds. Still with right lobe of thyroid. Anterior neck compression symptoms: No overt or daily dysphagia of solids, liquids or pills. No overt globus sensation in neck. No new or existing hoarseness. No anterior neck compression / feeling of external pressure. Denies clearing of throat. Denies cough. Biotin use (vitamin B-7) : Use of jkii-bkb-ehyvtej, high dose, biotin supplement: None. Use of Hvdo-Lbcy-Eqdo vitamins, or similar formulation with high-dose biotin: None. Use of B-complex vitamin preparations with high-dose biotin: Yes, on a B-complex. ([facility]) biotin 50 mcg per pill. Last dose was ~36 hours ago. Use of jjkj-zvz-zdjxagt leave-in hair conditioners that contain biotin: None. Allergies, medications, medical and surgical history, family history and social history, and problem list reviewed. Preferred pharmacy for the medications I prescribe (or may prescribe) is: [facility]/pharmacy #[id number] [place] [address] - [phone] [facility]. - [phone] [facility] [phone] Review of Systems Review of Systems Constitutional: Negative for malaise/fatigue. Respiratory: Negative for shortness of breath and wheezing. Cardiovascular: Negative for chest pain and palpitations. Gastrointestinal: Negative for abdominal pain, nausea and vomiting. Musculoskeletal: Negative for back pain and joint pain. Neurological: Negative for tremors. Endo/Heme/Allergies: See the history of present illness section Past Medical, Surgical, Family and Social History PAST MEDICAL HISTORY Diagnosis Date Arthritis of right knee 04/24/2021 Seeing [facility] Cholelithiasis 10/2008 Elevated bilirubin Goiter, nodular 01/15/2015 H/O partial thyroidectomy 04/14/2017 History of COVID-19 04/24/202102/2021 Left thyroid nodule 05/09/2015 benign Rectal spasm 04/14/2017 Well adult exam 04/24/2021 Last done: 04/24/2021 PAST SURGICAL HISTORY Procedure Laterality Date BIOPSY LIVER NEEDLE PERCUTANEOUS 02/04/2009 COLONOSCOPY 06/30/2018 FNA WITH IMAGING Left 02/01/2015 U/S FNA left thyroid nodule LAPS SURG CHOLECYSTECTOMY W/CHOLANGIOGRAPHY 02/04/2009 PAST SURGICAL HISTORY OF hardware in rt ankle TOTAL THYROID LOBECTOMY UNI W/WO ISTHMUSECTOMY Left 05/09/2015 no cancer FAMILY HISTORY Problem Relation Age of Onset Hypertension Mother Hyperlipidemia Father other (Protatitis) Father Hypertension Brother Diabetes Maternal Grandmother Alzheimer's Disease Maternal Uncle Colon Cancer No Family History Prostate Cancer No Family History Breast Cancer No Family History Ovarian cancer No Family History Coronary Artery Disease No Family History Kidney Disease No Family History Seizures No Family History Stroke No Family History Thyroid No Family History Social History Tobacco Use Smoking status: Never Smokeless tobacco: Never Vaping Use Vaping Use: Never used Substance Use Topics Alcohol use: No Drug use: No Medications Current Outpatient Medications Medication Sig Dispense Refill meloxicam (MOBIC) 15 mg tablet Take 15 mg by mouth once daily. As needed vitamin B complex (B-COMPLEX ORAL) Take by mouth once daily. [facility], biotin 50 mcg per pill OTC NUTRITIONAL SUPPLEMENT once daily. OPC EXtra No current facility-administered medications for this visit. Physical Examination and Vitals BP 121/81 Pulse 65 Ht 6' .06 (1.83m) Wt 187 lb 1.6 oz (84.9kg) BMI 25.34 kg/(m^2). Last 5 Encounter Wt Readings: Date: Wt: 04/24/2021 81.6 kg (180 lb) 03/04/2021 82.9 kg (182 lb 11.2 oz) 05/09/2020 83.9 kg (184 lb 14.4 oz) 05/24/2019 86.5 kg (190 lb 11.2 oz) 02/01/2019 84.8 kg (187 lb) Physical Exam Vitals reviewed. Constitutional: Appearance: He is not toxic-appearing or diaphoretic. HENT: Head: Normocephalic and atraumatic. Eyes: General: No scleral icterus. Neck: Thyroid: No thyroid mass, thyromegaly or thyroid tenderness. Comments: No palpable tissue in the left thyroid bed area Cardiovascular: Rate and Rhythm: Normal rate and regular rhythm. Heart sounds: No murmur heard. Pulmonary: Effort: Pulmonary effort is normal. No respiratory distress. Breath sounds: Normal breath sounds. No wheezing, rhonchi or rales. Abdominal: Tenderness: There is no right CVA tenderness or left CVA tenderness. Lymphadenopathy: Head: Right side of head: No submandibular, tonsillar or preauricular adenopathy. Left side of head: No submandibular, tonsillar or preauricular adenopathy. Cervical: No cervical adenopathy. Skin: General: Skin is warm. Neurological: Mental Status: He is alert and oriented to person, place, and time. Motor: No tremor (No tremor of outstretched hands). Psychiatric: Mood and Affect: Mood and affect normal. Judgment: Judgment normal. Assessment and Plans: 1. Goiter, nodular Procedure #1: Thyroid Ultrasound to re-evaluate thyroid and associated neck anatomy, evaluate nodule(s) and evaluate need for biopsy. Neck Ultrasound ([id number]) was performed during the endocrine clinic visit. Findings: The thyroid gland architecture is heterogeneous. Right lobe 49.8 x 19.8 x 15.2 mm (length x width x depth), no nodules or cysts. Left lobe and Isthmus surgically absent. No suspicious lymph nodes were found in central neck levels and VII, or right and left neck levels IV, III, IIa, IIb. Can monitor remaining lobe over time. Discussed changing appointments to q2 years, as long as thyroid hormone levels ok today. - US THYROID/PARATHYROID - US THYROID/PARATHYROID (POC) ENDO USE ONLY 2. H/O partial thyroidectomy 3. At risk for hypothyroidism Recheck thyroid hormone levels Of note, thyroid hormone levels have been good, post partial thyroidectomy - TSH BLD; Future - T4 FREE/FREE THYROX; Future 4. Thyroid disorder 5. History of COVID-2020 recovered John Hernandez MD [facility] - [place] documented in this encounter [facility] documented as of this encounter (statuses as of 03/04/2022) [facility]10[facility] History of Past illness Narrative* Problem Noted Date Resolved Date Well adult exam 04/24/2021 03/04/2022 Overview: Last done: 04/24/2021 Rectal spasm 04/14/2017 03/04/2022 Left thyroid nodule 01/14/2015 03/04/2022 Overview: Seeing Dr. Mary Gamino adenomatoid nodule, 05/09/15. No papillary cancer Calculus of gallbladder with other cholecystitis, without mention of obstruction 01/06/2009 01/14/2015 DIS BILIRUBIN EXCRETION 11/06/2008 01/15/20 15 documented as of this encounter (statuses as of 03/09/2022) [facility] History of Past illness Narrative* Problem Noted Date Resolved Date Rectal spasm 04/14/2017 03/04/2022 Left thyroid nodule 01/14/2015 03/04/2022 Overview: Seeing Dr. Mary Gamino adenomanick nodule, 05/09/15. No papillary cancer Calculus of gallbladder with other cholecystitis, without mention of obstruction 01/06/2009 01/14/2015 DIS BILIRUBIN EXCRETION 11/06/2008 01/15/20 15 documented as of this encounter (statuses as of 05/25/2022) [facility] History of Past illness Narrative* Problem Noted Date Diagnosed Date Resolved Date Rectal spasm 04/14/2017 03/04/2022 Left thyroid nodule 01/14/2015 03/04/20 22 Overview: Seeing Dr. Mary Gamino adenomatoivan nodule, 05/09/15. No papillary cancer Calculus of gallbladder with other cholecystitis, without mention of obstruction 01/06/2009 01/14/2015 DIS BILIRUBIN EXCRETION 11/06/2008/0 01/2015 documented as of this encounter (statuses as of 05/11/2023) [facility] History of Past illness Narrative* Problem Noted Date Diagnosed Date Resolved Date Rectal spasm 04/14/2017 03/04/2022 Left thyroid nodule 01/14/2015 03/04/20 22 Overview: Seeing Dr. Hernandez Endo adenomatoid nodule, 05/09/15. No papillary cancer Calculus of gallbladder with other cholecystitis, without mention of obstruction 01/06/2009 01/14/2015 DIS BILIRUBIN EXCRETION 11/06/20080 01/2015 documented as of this encounter (statuses as of 05/14/2023) [facility] History of Past illness Narrative* Problem Noted Date Diagnosed Date Resolved Date Rectal spasm 04/14/2017 03/04/2022 Left thyroid nodule 01/14/2015 03/04/20 22 Overview: Seeing Dr. Hernandez Endo adenomatoid nodule, 05/09/15. No papillary cancer Calculus of gallbladder with other cholecystitis, without mention of obstruction 01/06/2009 01/14/2015 DIS BILIRUBIN EXCRETION 11/06/20080 01/2015 documented as of this encounter (statuses as of 05/17/2023) [facility] [place] [facility] Diagnosis Goiter, nodular- Primary Unspecified nontoxic nodular goiter H/O partial thyroidectomy Other postprocedural status At risk for hypothyroidism Other specified conditions influencing health status Thyroid disorder Unspecified disorder of thyroid History of COVID-19 documented in this [facility] [place] [facility] Diagnosis Gilbert's syndrome Disorders of bilirubin excretion [facility] [place] [facility]* Diagnosis Screening for colon cancer- Primary Special screening for malignant neoplasms, colon Family history of colon cancer Family history of malignant neoplasm of gastrointestinal tract documented in this encounter [facility] for referral (narrative)* Diagnostic Procedure Only (Routine) - Pending Review Specialty Diagnoses / Procedures Referred By Contac t Referred To Contact US IMAGING Diagnoses Goiter, nodular Procedures US THYROID/PARATHYROID US SOFT TISSUE HEAD & NECK REAL TIME IMGE DOCJohn Romo MD [address] [place] [address] Us Imaging Referral ID Status Reason Start Date Expiration Date Visits Requested Visits Authorized [id number] Pending Review Auto-Generat ed Referral 03/04/2022 04/03/2023 1 1 [facility] Summary Purpose Family History No Family History Records FoundNo Family History Records FoundNo Family History Records Found Advance Directives Documents on File Type Date Recorded Patient Bulwark Carpenter Expl anation Advance Directive(s) 08/25/2010 10:07 AM Documents on File Type Date Recorded Patient Bulwark Carpenter Expl anation Advance Directive(s) 08/25/2010 10:07 AM Reason for Referral Specialty Diagnoses / Procedures Referred By Ernie graham Referred To Contact General Surgery Diagnoses Family history of colon cancer Screening for colon cancer Procedures CONSULT TO GENERAL SURGERY OFFICE/OUTPATIENT [facility] MDM 60-74 MINUTES James White MD [address] [place] [address] Referral ID Status Reason Start Date Expiration Date Visits Requested Visits Authorized [id number] Authorized PCP Requested Referral 05/16/2023 05/15/2024 1 1 Additional Source Comments (unrecognized sect ion and content) No Status Records FoundNo Status Records FoundNo Status Records Found INFORMATION SOURCE (unrecogn ized section and content) DATE CREATED AUTHOR AUTHOR'S ORGANIZ ATION 03/06/2022 [facility] DATE CREATED AUTHOR AUTHOR'S ORGANIZ ATION 05/17/2023 [facility] Source Comments (unrecognize d section and content) In the event this informatio n is protected by the Federal Confidentiality of Alcohol and Drug Abuse Patient Records regulations: The Federal rules restrict any use of the information to criminally investigate or prosecute any alcohol or drug abuse patient.[facility] the event this information is protected by the Federal Confidentiality of Alcohol and Drug Abuse Patient Records regulations: The Federal rules restrict any use of the information to criminally investigate or prosecute any alcohol or drug abuse patient.[facility] the event this information is protected by the Federal Confidentiality of Alcohol and Drug Abuse Patient Records regulations: The Federal rules restrict any use of the information to criminally investigate or prosecute any alcohol or drug abuse patient.[facility] the event this information is protected by the Federal Confidentiality of Alcohol and Drug Abuse Patient Records regulations: The Federal rules restrict any use of the information to criminally investigate or prosecute any alcohol or drug abuse patient.[facility] the event this information is protected by the Federal Confidentiality of Alcohol and Drug Abuse Patient Records regulations: The Federal rules restrict any use of the information to criminally investigate or prosecute any alcohol or drug abuse patient.[facility] the event this information is protected by the Federal Confidentiality of Alcohol and Drug Abuse Patient Records regulations: The Federal rules restrict any use of the information to criminally investigate or prosecute any alcohol or drug abuse patient.[facility] Reason for Visit (unrecogniz ed section and content) Reason Comments Results Reason Comments Patient Update Care Teams (unrecognized sec tion and content) [employer] Relationship Specialty Start Date End Date James White MD [address] [place], [place] [id number] PCP - General Family Practice 03/04/21 [employer] P[employer] Relationship Specialty Start Date End Date James White MD [address] [place], [place] [id number] PCP - General Family Medicine 03/04/21 [employer] P[employer] Relationship Specialty Start Date End Date Jamse White MD [address] [place], [place] [address] PCP - General Family Medicine 03/04/21 [employer] Pumper Relationship Specialty Start Date End Date James White MD [address] [place], [place] [id number] [phone] PCP - General Family Medicine 03/04/21 [employer] Pumper Relationship Specialty Start Date End Date James White MD [address] [place] [address] PCP - General Family Medicine 03/04/21 FOR RECORDS PERTAINING TO PATIENTS WHO ARE OR HAVE BEEN ENROLLED IN A CHEMICAL DEPENDENCY/SUBSTANCEABUSE PROGRAM, SOME INFORMATION MAY BE OMITTED. This clinical summary was aggregated from multiple sources. Caution should be exercised in using it in the provision of clinical care. This summary normalizes information from multiple sources, and as a consequence, information in this document may materially change the coding, format and clinical context of patient data. In addition, data may be omitted in some cases. CLINICAL DECISIONS SHOULD BE BASED ON THE PRIMARY CLINICAL RECORDS. [facility] [employer], [facility]. provides no warranty or guarantee of the accuracy or completeness of information in this document.
--- NOTE | 2023-07-13 10:45 | OP.COLON_ITS ---
Patient Name: Manav Mckeon Procedure Date: 07/13/2023 10:14 AM Date of : 1970 Age: 53 Procedure: Colonoscopy Indications: Screening for colorectal malignant neoplasm, Screening in patient at increased risk: Family history of 1st-degree relative with colorectal cancer before age 60 years Providers: Uri Rodríguez DO Medicines: Monitored Anesthesia Care Patient Profile: This is a 53 year old male. Refer to note in patient chart for documentation of history and physical. Last Colonoscopy: several years ago. Complications: No immediate complications. Procedure: Pre-Anesthesia Assessment: - Prior to the procedure, a History and Physical was performed, and patient medications and allergies were reviewed. The patient is competent. The risks and benefits of the procedure and the sedation options and risks were discussed with the patient. All questions were answered and informed consent was obtained. Patient identification and proposed procedure were verified by the physician in the pre-procedure area. Mental Status Examination: alert and oriented. Airway Examination: normal oropharyngeal airway and neck mobility. Respiratory Examination: clear to auscultation. CV Examination: normal. Prophylactic Antibiotics: The patient does not require prophylactic antibiotics. Prior Anticoagulants: The patient has taken no anticoagulant or antiplatelet agents. ASA Grade Assessment: II - A patient with mild systemic disease. After reviewing the risks and benefits, the patient was deemed in satisfactory condition to undergo the procedure. The anesthesia plan was to use monitored anesthesia care (MAC). Immediately prior to administration of medications, the patient was re-assessed for adequacy to receive sedatives. The heart rate, respiratory rate, oxygen saturations, blood pressure, adequacy of pulmonary ventilation, and response to care were monitored throughout the procedure. The physical status of the patient was re-assessed after the procedure. After I obtained informed consent, the scope was passed under direct vision. Throughout the procedure, the patient's blood pressure, pulse, and oxygen saturations were monitored continuously. The Colonoscope was introduced through the anus and advanced to the cecum, identified by appendiceal orifice and ileocecal valve. The colonoscopy was performed without difficulty. The patient tolerated the procedure well. The quality of the bowel preparation was adequate. The terminal ileum, ileocecal valve, appendiceal orifice, and rectum were photographed. Scope In: 10:23:44 AM Scope Withdrawal Time 0 hours 11 minutes 59 seconds Scope Out: 10:40:11 AM Total Procedure Duration Time 0 hours 16 minutes 27 seconds Findings: The perianal and digital rectal examinations were normal. Localized mild inflammation characterized by erosions and erythema was found in the rectum. Biopsies were taken with a cold forceps for histology. Verification of patient identification for the specimen was done. Estimated blood loss was minimal. A few small-mouthed diverticula were found in the recto-sigmoid colon, sigmoid colon and descending colon. The exam was otherwise without abnormality on direct and retroflexion views. Impression: - Localized mild inflammation was found in the rectum. Biopsied. - Diverticulosis in the recto-sigmoid colon, in the sigmoid colon and in the descending colon. - The examination was otherwise normal on direct and retroflexion views. Recommendation: - Discharge patient to home. - Resume previous diet. - Continue present medications. - Await pathology results. - Repeat colonoscopy in 5 years for surveillance. Procedure Code(s): --- Professional --- 48498, Colonoscopy, flexible; with biopsy, single or multiple CPT copyright 2021 [employer]. All rights reserved. The codes documented in this report are preliminary and upon armored truck driver review may be revised to meet current compliance requirements. Uri Rodríguez DO 07/13/2023 10:45:22 AM This report has been signed electronically. Number of Addenda: 0 Note Initiated On: 07/13/2023 10:14 AM
--- NOTE | 2023-07-13 10:46 | OP.CCLET_ITS ---
07/13/2023 Leonel Heaton MD Re : Colonoscopy procedure for Manav Mckeon Dear Dr. Heaton This procedure was performed on Thursday, July 13, 2023. My impressions and recommendations are as follows: Impressions : - Localized mild inflammation was found in the rectum. Biopsied. - Diverticulosis in the recto-sigmoid colon, in the sigmoid colon and in the descending colon. - The examination was otherwise normal on direct and retroflexion views. Recommendations : - Discharge patient to home. - Resume previous diet. - Continue present medications. - Await pathology results. - Repeat colonoscopy in 5 years for surveillance. My findings are described in the full procedure note, which is enclosed. If I can be of further assistance, please feel free to contact me at . Sincerely, Uri Friend, 07/13/2023 10:45:22 AM This report has been signed electronically.
== END 2023-07-13 11:43 | disposition home or self-care (01) ==
LOC: EN 09:00 → AC 09:01
PROVIDERS: PCP Family Medicine; Referring Provider Family Medicine; Visit Provider Internal Medicine Gastroenterology
PROC: 0DJD8ZZ Inspection of Lower Intestinal Tract, Via Natural or Artificial Opening Endoscopic (ICD-10-PCS; CPT 45378; principal; 2023-07-13 09:55)
DX: Z12.11 Encounter for screening for malignant neoplasm of colon (principal); K57.30 Diverticulosis of large intestine without perforation or abscess without bleeding; Z80.0 Family history of malignant neoplasm of digestive organs; Z90.49 Acquired absence of other specified parts of digestive tract
CPT/HCPCS: 45380; 88305; J7120; J2405